=== PATIENT | female | born 1980 | race Caucasian/White ===

== ENCOUNTER → 2016-10-20 | Outpatient (REF) | payer BC ==
[~2016-10-20] MED LIST: /MOM400 PO; PERCOCET PO; THYR30TA PO; TYLE325T5 PO
== END ==
LOC: M LABDRAW1 09:20
PROVIDERS: ATTEND Internal Medicine
DX: E03.9 Hypothyroidism, unspecified (principal)

== ENCOUNTER → 2016-10-20 | Outpatient (REF) | payer BC ==
[2016-10-20 12:00] LABS: MEAN CORPUSCULAR HEMOGLOBIN 25.5 pg (27.0-33.0); MEAN CORPUSCULAR HGB CONC 32.4 g/dl (32.0-36.5); MEAN CORPUSCULAR VOLUME 78.5 fl (80.0-96.0); RED CELL DISTRIBUTION WIDTH 15.1 % (11.5-14.5); WHITE BLOOD COUNT 7.2 K/mm3 (4.0-10.0)
[2016-10-20 12:09] LABS: VITAMIN B12 LEVEL 388 PG/ML (247-911)
[2016-10-20 15:03] LABS: ALBUMIN 3.8 GM/DL (3.2-5.2); ALBUMIN/GLOBULIN RATIO 1.23 (1.00-1.93); ALKALINE PHOSPHATASE 112 U/L (45-117); ALT/SGPT 21 U/L (12-78); ANION GAP 8 MEQ/L (8-16); AST/SGOT 11 U/L (15-37); BILIRUBIN,TOTAL 0.4 MG/DL (0.2-1.0); BLOOD UREA NITROGEN 12 MG/DL (7-18); CALCIUM LEVEL 9.2 MG/DL (8.5-10.1); CARBON DIOXIDE LEVEL 27 MEQ/L (21-32); CHLORIDE LEVEL 106 MEQ/L (98-107); CHOLESTEROL LEVEL 160 MG/DL (<200); CREATININE FOR GFR 0.68 MG/DL (0.55-1.02); GLOMERULAR FILTRATION RATE > 60.0 (>60); GLUCOSE, FASTING 88 MG/DL (70-105); PERCENT SATURATION 5.7 % (13.2-37.4); POTASSIUM SERUM 4.4 MEQ/L (3.5-5.1); SODIUM LEVEL 141 MEQ/L (136-145); TOTAL IRON BINDING CAPACITY 438 UG/DL (250-450); TOTAL PROTEIN 6.9 GM/DL (6.4-8.2); TRIGLYCERIDES LEVEL 116 MG/DL (<150)
== END ==
LOC: M LABDRAW1 09:16
PROVIDERS: ATTEND Family Medicine
DX: E03.9 Hypothyroidism, unspecified (principal)

== ENCOUNTER → 2017-03-06 | Outpatient (REF) | payer BC | LOC: M LAB REF 17:44 | PROVIDERS: ATTEND Obstetrics & Gynecology | DX: Z12.4 Encounter for screening for malignant neoplasm of cervix (principal) ==

== ENCOUNTER → 2017-05-17 | Outpatient (CLI) | payer OTHER | LOC: M WUC 11:44 | DX: R91.8 Other nonspecific abnormal finding of lung field (principal) | CPT/HCPCS: 71046 ==

== ENCOUNTER → 2017-06-28 | Outpatient (REF) | payer OTHER | LOC: M LAB REF 09:30 | DX: J11.1 Influenza due to unidentified influenza virus with other respiratory manifestations (principal) ==

== ENCOUNTER 2017-07-02 14:43 | Emergency (ER) | payer OTHER | END 2017-07-02 16:21 | disposition home or self-care (01) | LOC: M ED 14:43 | DX: S29.011A Strain of muscle and tendon of front wall of thorax, initial encounter (principal); X58.XXXA Exposure to other specified factors, initial encounter; Y92.89 Other specified places as the place of occurrence of the external cause; R05 Cough; R06.02 Shortness of breath; Z98.84 Bariatric surgery status; Z79.890 Hormone replacement therapy; Z88.5 Allergy status to narcotic agent | CPT/HCPCS: 99283 ==

== ENCOUNTER → 2017-07-02 | Outpatient (CLI) | payer OTHER | LOC: M RAD 09:55 | DX: R05 Cough (principal) ==

== ENCOUNTER → 2017-08-16 | Outpatient (CLI) | payer OTHER | LOC: M LAB 09:58 | DX: R21 Rash and other nonspecific skin eruption (principal) | CPT/HCPCS: 36415 ==

== ENCOUNTER → 2018-01-02 | Outpatient (REF) | payer OTHER ==
[2018-01-02 21:55] LABS: FREE T4 0.89 NG/DL (0.76-1.46)
== END ==
LOC: M LAB REF 21:15
DX: E03.9 Hypothyroidism, unspecified (principal)

== ENCOUNTER → 2018-07-26 | Outpatient (CLI) | payer BC ==
[~2018-07-26] MED LIST changes: +AMOX875T2 PO; +BACT800T5 PO; +CEFU1TAB20 PO; +PERC5TAB12 PO; +PRED20TA; +ROBA500T PO; +TESS100C PO
--- NOTE | 2018-07-26 10:03 | REP ---
MAXILLOFACIAL CT WITHOUT CONTRAST: HISTORY: Chronic sinusitis. COMPARISON: 12/31/2006 The right frontal sinus is hypoplastic. A left Chana cell is present. Minimal mucosal thickening is present in the left ethmoid and right maxillary sinuses. Minimal mucosal thickening and a retention cyst are present in the left maxillary sinus. The remaining sinuses are clear. The osteomeatal units are patent. The left middle nasal turbinate is hypoplastic. The middle and inferior nasal turbinates are partially paradoxical. There is mild deviation of the nasal septum to the left. The nasal septum abuts the left middle and inferior nasal turbinates. The cribriform plate, medial montelongo of the orbits and optic canals are intact. The carotid canals form a segment of the posterolateral montelongo of the sphenoid sinus. IMPRESSION: Sinus mucosal thickening as described above. Electronically Signed by Otoniel Gracia MD 07/26/2018 10:06 A
== END ==
LOC: M RAD 09:11
PROVIDERS: ATTEND Otolaryngology
DX: J32.0 Chronic maxillary sinusitis (principal)

== ENCOUNTER → 2018-08-17 | Outpatient (REF) | payer BC ==
[~2018-08-17] MED LIST changes: -/MOM400 PO; +MILK10SU PO; +OXYC1TAB23 PO; -PERCOCET PO
[2018-08-17 16:18] LABS: C REACTIVE PROTEIN QUANTITATIV 0.42 MG/DL (0.00-0.30)
[2018-08-17 16:35] LABS: H PYLORI QUALITATIVE IgG NEGATIVE (NEGATIVE)
== END ==
LOC: M SFHCPLAZ 14:34
PROVIDERS: ATTEND Family Medicine
DX: R10.13 Epigastric pain (principal)

== ENCOUNTER → 2018-08-18 | Outpatient (REF) | payer BC | LOC: M SFHCPLAZ 11:30 | PROVIDERS: ATTEND Family Medicine | DX: Z53.9 Procedure and treatment not carried out, unspecified reason (principal); R10.13 Epigastric pain ==

== ENCOUNTER → 2018-09-14 | Outpatient (CLI) | payer BC ==
[2018-09-16 14:27] LABS: HPV HYBRID CAPTURE II Negative (Negative)
== END ==
LOC: M SMT 10:15
PROVIDERS: ATTEND Obstetrics & Gynecology
DX: Z13.79 Encounter for other screening for genetic and chromosomal anomalies (principal)
CPT/HCPCS: 36415; 87624; G0123

== ENCOUNTER → 2018-10-08 | Outpatient (REF) | payer BC ==
[2018-10-08 10:44] LABS: HEMOGLOBIN A1c 6.5 %
[2018-10-08 11:04] LABS: ALBUMIN 3.7 GM/DL (3.2-5.2); ALT/SGPT 19 U/L (12-78); BILIRUBIN,TOTAL 0.6 MG/DL (0.2-1.0); BLOOD UREA NITROGEN 9 MG/DL (7-18); CALCIUM LEVEL 8.7 MG/DL (8.5-10.1); CARBON DIOXIDE LEVEL 27 MEQ/L (21-32); CHLORIDE LEVEL 107 MEQ/L (98-107); CHOLESTEROL LEVEL 181 MG/DL (<200); CHOLESTEROL RISK RATIO 2.828 (<5); CREATININE FOR GFR 0.73 MG/DL (0.55-1.30); FREE T4 1.12 NG/DL (0.76-1.46); GLOMERULAR FILTRATION RATE > 60.0 (>60); GLUCOSE, FASTING 95 MG/DL (70-100); HDL CHOLESTEROL 64 MG/DL (>40); LDL CHOLESTEROL 97 MG/DL (<100); NON-HDL-C 117 MG/DL; POTASSIUM SERUM 4.3 MEQ/L (3.5-5.1); SODIUM LEVEL 142 MEQ/L (136-145); TOTAL PROTEIN 6.8 GM/DL (6.4-8.2); TRIGLYCERIDES LEVEL 101 MG/DL (<150)
== END ==
LOC: M SFHCPLAZ 08:44
PROVIDERS: ATTEND Family Medicine
DX: Z13.1 Encounter for screening for diabetes mellitus (principal); E03.9 Hypothyroidism, unspecified; Z13.220 Encounter for screening for lipoid disorders

== ENCOUNTER → 2019-01-13 | Outpatient (REF) | payer BC ==
[~2019-01-13] MED LIST changes: +LEVO137T2 PO; +MULTCAP PO
== END ==
LOC: M SFHCPLAZ 15:37
PROVIDERS: ATTEND Family Medicine
DX: J06.9 Acute upper respiratory infection, unspecified (principal)

== ENCOUNTER → 2019-01-13 | Outpatient (CLI) | payer BC ==
[~2019-01-13] MED LIST changes: -LEVO137T2 PO; -MULTCAP PO
--- NOTE | 2019-01-13 15:01 | REP ---
Clinical: Upper respiratory tract infection . Comparison: 05/17/2017 . Technique: PA and lateral. Findings: The mediastinum and cardiac silhouette are normal. The lung holland are clear and without acute consolidation, effusion, or pneumothorax. The skeletal structures are intact and normal. Impression: 1. No acute cardiopulmonary process. Electronically Signed by Rusty Rodríguez MD 01/13/2019 02:53 P
== END ==
LOC: M SMT 14:45
PROVIDERS: ATTEND Family Medicine
DX: J06.9 Acute upper respiratory infection, unspecified (principal)

== ENCOUNTER → 2019-02-25 | Outpatient (CLI) | payer BC ==
[~2019-02-25] MED LIST changes: +LEVO137T2 PO; +MULTCAP PO
--- NOTE | 2019-02-25 08:17 | REP ---
CT paranasal sinuses: 02/26/2019. Indication: Sinusitis. Comparison: 12/31/2006. Technique: Axial images of the paranasal sinuses were performed with coronal reconstructions provided. Findings: New retention or radicular cyst is noted within the inferior left maxillary sinus. The sinonasal passageways are patent. There is leftward deviation of the nasal septum. No significant periosteal mucosal thickening is present. The mastoid air cells are clear. Left temporal parietal craniotomy and likely resection of the anterior left temporal lobe are noted. No significant ocular or intraorbital abnormalities are present. Impression: Left maxillary retention cyst. The sinuses are otherwise clear. Electronically Signed by Dimas Lynn DO 02/25/2019 08:09 A
== END ==
LOC: M RAD 06:58
PROVIDERS: ATTEND Otolaryngology
DX: J32.0 Chronic maxillary sinusitis (principal)

== ENCOUNTER 2019-03-09 09:18 | Day surgery (SDC) | payer BC ==
[~2019-03-09] VITALS: Ht 149.9 cm; Wt 95.3 kg
[~2019-03-09 09:18] MED LIST changes: +LR 1,000 ML IV ONE
[2019-03-09] MEDS ORDERED: ONDANSETRON 4MG/2ML VIAL (J2405) As Ordered ONE (11:29)
[2019-03-09] MEDS ORDERED: LIDOCAINE 2% INJ 100 MG/5 ML SDV (FOR ANES.) As Ordered ONE ×2 (11:29→14:37)
[2019-03-09] MEDS ORDERED: ROCURONIUM BROMIDE 50 MG/5 ML VIAL As Ordered ONE ×2 (11:29→13:53)
[2019-03-09] MEDS ORDERED: dexameTHASONE 4 MG/ML 1ML VIAL (J1100) As Ordered ONE ×2 (11:29→11:30)
[2019-03-09] MEDS ORDERED: PROPOFOL 200 MG/20 ML VIAL As Ordered ONE ×2 (11:29→14:37)
[2019-03-09] MEDS ORDERED: MIDAZOLAM INJ 2 MG/2 ML VIAL (J2250) As Ordered ONE (12:30)
[2019-03-09] MEDS ORDERED: fentaNYL 250 MCG/5 ML INJECTION (J3010) As Ordered ONE (12:30)
[2019-03-09] MEDS ORDERED: METHYLENE BLUE 0.5% (5MG/ML) 10 ML AMP (PROVAYBLUE)(Q9968 PER 1MG) As Ordered ONE (13:22)
[2019-03-09] MEDS ORDERED: LIDOCAINE W/EPINEPHRINE 1% 20ML VIAL As Ordered ONE (13:22)
[2019-03-09] MEDS ORDERED: EPINEPHrine 1MG/ML INJ 30ML MD-VIAL As Ordered ONE ×2 (13:22→15:03)
[2019-03-09] MEDS ORDERED: LACRILUBE (AKWA TEARS) OPHTH OINT 3.5 GM As Ordered ONE (13:44)
[2019-03-09] MEDS ORDERED: SUGAMMADEX SODIUM 500 MG/5 ML VIAL (BRIDION) As Ordered ONE (13:53)
[2019-03-09] MEDS ORDERED: hydrALAZINE INJ 20 MG/ML VIAL As Ordered ONE (14:20)
[2019-03-09] MEDS ORDERED: METOCLOPRAMIDE INJ 10MG/2ML VIAL (J2765) As Ordered ONE (14:41)
[2019-03-09] MEDS ORDERED: MORPHINE 10 MG/ML 1ML VIAL (J2270) As Ordered ONE (14:47)
[2019-03-09] MEDS ORDERED: ESMOLOL INJ 100MG/10ML VIAL As Ordered ONE (15:06)
[2019-03-09] MEDS ORDERED: LABETALOL HCL 100 MG/20 ML VIAL As Ordered ONE (16:10)
[2019-03-09] MEDS ORDERED: LR 1,000 ML IV SCH ×2 (17:00→18:01)
[2019-03-09] MEDS ORDERED: MEPERIDINE INJ 25 MG/ML VIAL (J2175) IV PRN (17:00)
[2019-03-09] MEDS ORDERED: fentaNYL 100 MCG/2 ML INJECTION (J3010) IV PRN (17:00)
[2019-03-09] MEDS ORDERED: oxyCODONE 5MG TAB PO PRN (17:00)
[2019-03-09] MEDS ORDERED: METOCLOPRAMIDE INJ 10MG/2ML VIAL (J2765) IV PRN (17:00)
[2019-03-09] MEDS ORDERED: ONDANSETRON 4MG/2ML VIAL (J2405) IV PRN (17:00)
[2019-03-09] MEDS ORDERED: ACETAMINOPHEN TAB 650MG DOSE (2X325MG) As Ordered ONE (18:36)
[2019-03-09] MEDS ORDERED: ACETAMINOPHEN TAB 650MG DOSE (2X325MG) PO ONE (19:00)
[2019-03-09 19:18] VITALS: BP 125/58
--- NOTE | 2019-03-31 11:18 | RO ---
DATE OF PROCEDURE: 03/09/2019 PREOPERATIVE DIAGNOSES: 1. Chronic maxillary sinusitis. 2. Chronic ethmoid sinusitis. POSTOPERATIVE DIAGNOSES: 1. Chronic maxillary sinusitis. 2. Chronic ethmoid sinusitis. PROCEDURE: 1. Stereotactic surgery using the Brainlab System. 2. Septoplasty. 3. Bilateral endoscopic maxillary antrostomy. 4. Bilateral anterior and posterior ethmoidectomy. 5. Bilateral implantation of the Propel stents. SURGEON: Dr. Morris Turpin. EMS EDUCATOR: ANESTHESIA: General. CLINICAL PREAMBLE: This 39-year-old woman presented to the office with history of chronic sinusitis refractory to medical therapy. CT scan of the sinuses revealed evidence of chronic maxillary sinusitis, chronic ethmoid sinusitis and deviated nasal septum. Management options including the surgery listed above had been discussed. The patient understood and consented to the procedure. DESCRIPTION OF PROCEDURE: The patient was identified in preholding and brought to the operating room in supine condition. In supine position on the operating room table, patient received general anesthesia followed by oral intubation without incident. Patient was prepped and draped in the usual fashion for the procedure. Both eyes were protected using lubricant and then Tegaderm. The head band from the [employer] system was successfully attached to the forehead area. Good surface margin was obtained between the patient surface anatomy and the Brainlab system. Both sides of the nasal cavity were packed using pledgets soaked 1:100,000 epinephrine. After a waiting period, the pledgets were removed. Inspection of the nasal cavity was performed using the 0 degree nasal endoscope. Significant deviation of the nasal septum into the left side of the nasal cavity was noted. The deviated portion of the left nasal septum was then infiltrated with 1% lidocaine with 1:100,000 epinephrine. The mucoperichondrium and mucoperiosteum flap was developed around the deviated portion of the nasal septum. After isolation of the deviated nasal septal cartilage, it was successfully resected to allow the good exposure of the left osteomeatal complex area. The anterior surface of the middle nasal turbinate was infiltrated with 1% lidocaine with 1:100,000 epinephrine. The uncinate processes were also similarly infiltrated. The left uncinate was successfully isolated and resected. The left maxillary antrum was identified and then enlarged using the side biting forceps. The left maxillary sinus was then irrigated. The left ethmoidalis bulla was identified and taken down using the Blakesley forceps. Diseased anterior ethmoid air cells were identified and resected as well. The basal lamella was identified and penetrated. Diseased posterior ethmoid air cells were then similarly resected as well. The same procedure was carried out to perform the right uncinectomy. The right maxillary antrum was identified and then enlarged using the side biting forceps. The right ethmoidalis bulla and anterior ethmoid air cells were taken down as well. The right basal lamella was penetrated and diseased posterior ethmoid air cells were also resected using cutting forceps. No disease was noted over the frontal recess region. As such, decision was made to not perform frontal sinusotomies to either side of the frontal sinuses. Complete hemostasis was observed at the end of the case. The Propel stent was inserted into the left and the right osteomeatal complex areas to ensure medialization of the middle nasal turbinates. Sponge and instrument counts were correct at the end of the procedure. Estimated blood loss was approximately 15 mL. General anesthesia was reversed and the patient was extubated and brought to the recovery room in stable condition. In the recovery area, the patient exhibited no evidence of periorbital ecchymosis. She showed evidence of symmetrical and full extraocular motions.
== END 2019-03-09 19:21 | disposition home or self-care (01) ==
LOC: M SDC 09:18
PROVIDERS: ATTEND Otolaryngology
DX: J32.0 Chronic maxillary sinusitis (principal); J32.2 Chronic ethmoidal sinusitis; J34.2 Deviated nasal septum; E03.9 Hypothyroidism, unspecified; R06.83 Snoring; Z88.5 Allergy status to narcotic agent; Z79.899 Other long term (current) drug therapy; Z86.011 Personal history of benign neoplasm of the brain; Z98.84 Bariatric surgery status
CPT/HCPCS: 30520; 31255; 31256; 81025; 88300; 88305; C2625; J1100; J2250; J2270; J2405; J2765; J3010; Q9968

== ENCOUNTER → 2019-07-22 | Outpatient (REF) | payer BC ==
[~2019-07-22] MED LIST changes: +BUPR15TASR PO; +FLON1SPR; -LR 1,000 ML IV ONE; +NEXP1IMP SC
[2019-07-22 17:55] LABS: ALT/SGPT 19 U/L (12-78); BILIRUBIN,TOTAL 0.3 MG/DL (0.2-1.0); BLOOD UREA NITROGEN 13 MG/DL (7-18); CALCIUM LEVEL 9.3 MG/DL (8.5-10.1); CARBON DIOXIDE LEVEL 28 MEQ/L (21-32); CHLORIDE LEVEL 108 MEQ/L (98-107); CREATININE FOR GFR 0.73 MG/DL (0.55-1.30); FREE T4 1.07 NG/DL (0.76-1.46); GLOMERULAR FILTRATION RATE > 60.0 (>60); GLUCOSE, FASTING 131 MG/DL (70-100); IRON (FE) 31 UG/DL (50-170); MAGNESIUM LEVEL 2.2 MG/DL (1.8-2.4); POTASSIUM SERUM 4.1 MEQ/L (3.5-5.1); SODIUM LEVEL 141 MEQ/L (136-145); TOTAL PROTEIN 7.3 GM/DL (6.4-8.2)
[2019-07-22 17:57] LABS: BASO # 0.1 10^3/uL (0.0-0.2); BASO % 0.5 % (0.0-1.0); EOS # 0.2 10^3/uL (0.0-0.5); EOS % 2.5 % (0.0-3.0); HEMATOCRIT 40.1 % (36.0-47.0); HEMOGLOBIN 12.9 g/dl (12.0-15.5); LYMPH # 2.2 10^3/uL (1.5-5.0); LYMPH % 23.4 % (24.0-44.0); MEAN CORPUSCULAR HEMOGLOBIN 26.9 pg (27.0-33.0); MEAN CORPUSCULAR HGB CONC 32.2 g/dl (32.0-36.5); MEAN CORPUSCULAR VOLUME 83.5 fl (80.0-96.0); MONO # 0.6 10^3/uL (0.0-0.8); MONO % 6.6 % (0.0-5.0); NEUTROPHILS # 6.3 10^3/uL (1.5-8.5); NEUTROPHILS % 66.7 % (36.0-66.0); PLATELET COUNT, AUTOMATED 322 10^3/uL (150-450); WHITE BLOOD COUNT 9.5 10^3/uL (4.0-10.0)
[2019-07-22 17:58] LABS: TOTAL 25(OH) VITAMIN D 14.4 NG/ML (30.0-100.0); VITAMIN B12 LEVEL 471 PG/ML
[2019-07-22 17:59] LABS: FOLATE 13.1 NG/ML; HEMOGLOBIN A1c 7.1 %
== END ==
LOC: M SFHCPLAZ 14:00
PROVIDERS: ATTEND Physician Assistant
DX: Z98.84 Bariatric surgery status (principal); E11.9 Type 2 diabetes mellitus without complications; E03.9 Hypothyroidism, unspecified; Z00.00 Encounter for general adult medical examination without abnormal findings